=== PATIENT | female | born 1940 | race Two or more races ===

== ENCOUNTER 2017-01-07 12:48 | Emergency (ER) | payer SELFPAY ==
[2017-01-07 12:53] VITALS: BP 153/60
== END 2017-01-07 16:07 | disposition home or self-care (01) ==
LOC: ER 12:48
DX: E11.9 Type 2 diabetes mellitus without complications (principal); J02.9 Acute pharyngitis, unspecified; Z79.4 Long term (current) use of insulin; Z76.0 Encounter for issue of repeat prescription